=== PATIENT | female | born 1995 | race Two or more races ===

== ENCOUNTER 2017-02-05 23:53 | Emergency (ER) | payer SELFPAY ==
[~2017-02-05] VITALS: Ht 160 cm; Wt 51.7 kg
[2017-02-05 23:58] VITALS: BP 115/79
[2017-02-06] MEDS ORDERED: BACITRACIN TOP OINT 1 UD PKG TOP ONE (01:30)
[2017-02-06] MEDS ORDERED: LIDOCAINE 1% HCL (LOCAL ANESTH.) INJ 20ML MDV IJ ONE (01:30)
[2017-02-06] MEDS ORDERED: TETANUS-DIPTH-ACEL PERTUSSIS 0.5ML SYRG IM ONE (02:00)
== END 2017-02-06 02:42 | disposition home or self-care (01) ==
LOC: ER 23:55
DX: S01.81XA Laceration without foreign body of other part of head, initial encounter (principal); Z88.8 Allergy status to other drugs, medicaments and biological substances; W06.XXXA Fall from bed, initial encounter; Y93.89 Activity, other specified; Y99.8 Other external cause status; Y92.89 Other specified places as the place of occurrence of the external cause
CPT/HCPCS: 12013; 90471; 90715; 99283; J2001

== ENCOUNTER 2018-02-03 06:47 | Emergency (ER) | payer SELFPAY ==
[~2018-02-03] VITALS: Ht 160 cm; Wt 50.8 kg
[2018-02-03] MEDS ORDERED: cefTRIAXone SOD 1,000 MG VL IM ONE (07:45)
[2018-02-03] MEDS ORDERED: methylPREDNISolone SOD SUCC 125 MG/2 ML VL IM ONE (08:30)
[2018-02-03 08:36] VITALS: BP 104/70
== END 2018-02-03 09:59 | disposition home or self-care (01) ==
LOC: ER 06:47
DX: J02.0 Streptococcal pharyngitis (principal); N63.0 Unspecified lump in unspecified breast
CPT/HCPCS: 76642; 96372; 99284; J0696; J2930

== ENCOUNTER 2023-02-20 07:36 | Emergency (ER) | payer BC ==
[~2023-02-20] VITALS: Ht 160 cm; Wt 62.5 kg
[2023-02-20 09:10] LABS: Basophils # (auto) 0 10 ^3/uL (0-0.2); Basophils % (auto) 0.2 % (0.0-2.0); Eosinophils # (auto) 0 10 ^3/uL (0-0.8); Eosinophils % (auto) 0.2 % (0.0-7.0); Hematocrit 40.6 % (36.0-46.0); Hemoglobin 13.3 g/dL (12.2-16.2); Lymphocytes # (auto) 1.2 10 ^3/uL (0.4-5.4); Mean Corpuscular Hemoglobin 29.6 pg (28.0-32.0); Mean Corpuscular Hgb Conc. 32.8 g/dL (32.0-36.0); Mean Corpuscular Volume 90.3 fL (80.0-100.0); Monocytes # (auto) 0.5 10 ^3/uL (0-1.3); Monocytes % (auto) 4.5 % (0.0-12.0); Neutrophils # (auto) 9.5 10 ^3/uL (1.6-8.6); Neutrophils % (auto) 84.1 % (37.0-80.0); Nucleated Red Blood Cells % 0.1 %; Red Blood Cells 4.49 10^6/uL (4.0-5.20); Red Cell Distribution Width 13.1 % (11.8-14.3); White Blood Cell 11.3 10^3/uL (4.4-10.8)
[2023-02-20 09:27] LABS: Alanine Aminotransferase 10 U/L (7-40); Albumin 4.9 g/dL (3.2-4.8); Alkaline Phosphatase 50 U/L (46-116); Anion Gap 10 (5-15); Aspartate Aminotransferase 18 U/L (13-40); BUN/Creatinine Ratio 14.9 (10.0-20.0); Bilirubin, Total 0.9 mg/dL (0.2-1.0); Blood Urea Nitrogen 11 mg/dL (9-23); Calcium 9.5 mg/dL (8.5-10.1); Carbon Dioxide 24 mmol/L (20-30); Chloride 106 mmol/L (98-107); Glucose 95 mg/dL (74-106); Potassium 3.7 mmol/L (3.5-5.1); Sodium 140 mmol/L (136-145)
[2023-02-20] MEDS ORDERED: METR-344 PO ×2 (10:15)
[2023-02-20] MEDS ORDERED: cefTRIAXone SOD 1,000 MG VL IM ONE (10:15)
[2023-02-20] MEDS ORDERED: AMOX500T3 PO (10:15)
[2023-02-20] MEDS ORDERED: IBU600T PO (10:15)
[2023-02-20 10:57] VITALS: BP 97/41; TEMP 98.7
[2023-02-20 11:00] VITALS: PULSE 62; RESP 16; O2SAT 95
[2023-02-20] MEDS ORDERED: CLIN300C70 PO (11:01)
== END 2023-02-20 11:29 | disposition home or self-care (01) ==
LOC: ER 07:36
DX: K52.9 Noninfective gastroenteritis and colitis, unspecified (principal); Z88.8 Allergy status to other drugs, medicaments and biological substances
CPT/HCPCS: 36415; 74176; 80053; 85025; 96372; 99285; J0696